=== PATIENT | female | born 1970 | race Caucasian/White ===

== ENCOUNTER 2023-09-01 13:27 | Emergency (ER) | payer MEDICAID, SELFPAY ==
[2023-09-01 13:28] VITALS: BP 120/82; PULSE 92; RESP 18; TEMP 36.2; O2SAT 97; BMI 20.5
[2023-09-01] MEDS: 0.9% Normal Saline (1000mL) 1,000 ML 1000 ML IV (14:21)
[2023-09-01 14:25] LABS: Absolute Lymphocyte Count 1.96 X10^3/uL (0.83-4.51); Absolute Neutrophil Count 4.5 X10^3/uL (2.0-7.7); Basophil% 1.4 % (0-1); Eosinophil# 0.25 X10^3/uL; Eosinophils% 3.4 % (0-5); Hematocrit 41.1 % (37-47); Hemoglobin 13.8 g/dL (12.0-15.0); Lymphocyte # 1.96 X10^3/ul (0.83-4.51); Mean Corp Hgb Conc 33.6 g/dL (32-36); Mean Corpuscular Hgb 32.2 pg (27.0-32.0); Mean Platelet Vol. 9.3 fl (6.2-12.0); Monocyte# 0.44 X10^3/uL; Monocyte% 6.1 % (0-10); NRBC Flagged by Analyzer 0 % (0-5); Neutrophil # 4.48 X10^3/uL (2.7-7.7); Neutrophil % 61.7 % (47-70); Platelet Count 301 K/mm3 (150-450); RBC Distribution Width CV 13.7 % (11.6-14.6); RBC Distribution Width SD 48.7 fl (35.1-43.9); Red Blood Count 4.28 M/mm3 (4.2-5.4); White Blood Count 7.3 K/mm3 (4.4-11.0)
[2023-09-01 14:44] LABS: International Normalized Ratio 0.9; Prothrombin Time (Protime)PT. 12.4 SECONDS (11.7-14.9)
--- NOTE | 2023-09-01 14:54 | ED.RN ---
Pt called out to have iv removed because it hurts too much. This RN informed pt that a ct scan with contrast was ordered and she'd need an iv. This RN asked if she would allow me to replace it in a different location. Pt declined. informed.
--- NOTE | 2023-09-01 14:56 | ED.RN ---
Registration entered room to get pt registered. Pt refused to answer questions and said she was leaving. Pt seen leaving facility. informed.
[2023-09-01 15:01] LABS: Anion Gap 4 (5-15); BUN 21 mg/dL (7-18); BUN/Creat Ratio 22.2 RATIO (10-20); Calcium,Total 9.1 mg/dL (8.5-10.1); Chloride 107 mmol/L (98-107); Creatinine, Serum 0.95 mg/dL (0.55-1.02); EST Glomerular Filtration Rate 66 mL/min (>60); Est Glom Filt Rate - Afr Amer 79 mL/min (>60); Estimated Creatinine Clearance 54.17 ml/min; Glucose 95 mg/dL (74-106); Lipase 65 U/L (13-75); Potassium 4.2 mmol/L (3.5-5.1); Sodium Level 139 mmol/L (136-145)
[2023-09-01 15:14] LABS: Troponin-I HS 3 pg/mL (3.0-54.0)
[2023-09-01 15:22] LABS: Lactic Acid 0.6 mmol/L (0.4-1.9)
--- NOTE | 2023-09-01 15:55 | EDS_ITS ---
HPI History of Present Illness Chief Complaint: Abd Pain Narrative Narrative: 52-year-old female presenting with chief complaint of spitting up blood which she states has been going on since February. She states he is not vomiting up blood but she is nauseous. She states she was diagnosed with lung cancer in February and upon following up with her primary she was told that the blood is likely from GERD/acid reflux and was put on a PPI which has not been helping. Patient states she has been coughing more and associates this with more blood in her sputum. Patient has had follow-up for the lung cancer and states that she recently had a PET scan and she had a bronchoscopy at [facility] but does not think they took any biopsies. Patient has not had pulmonology follow-up. She states she supposed to see Dr. Bingham but has been lost to follow-up. She also relates that she was recently diagnosed with metastatic brain cancer on MRI and was told again to see Dr. Scott but has not yet followed. She is not on any blood thinners. She denies chest pain. She is not short of breath. She has not had any fevers. [facility] Medical History Brain cancer Cancer GERD (gastroesophageal reflux disease) Lung cancer Home Medications No Known/Unobtainable [No Known Home Medications] 03/26/16 [History Last Taken Unknown] Allergy/AdvReac Type Severity Reaction Status Date / Time No Known Allergies Allergy Verified 09/01/23 13:32 Social History Smoking Status: Current every day smoker tobacco type: cigarettes ROS ROS ED Constitutional Constitutional ED: Denies chills, fever(s) or sweats Eyes Eyes: Denies blurry vision or change in vision ENT ENT ED: Denies ear pain or sore throat Cardiovascular Cardiovascular: Denies chest pain, palpitations or racing heartbeat Respiratory/Chest Respiratory/Chest: Reports cough and other Details: Hemoptysis ; Denies dyspnea or sputum Gastrointestinal Gastrointestinal: Denies abdominal pain, constipation, diarrhea, nausea or vomiting Genitourinary Genitourinary ED: Denies dysuria, hematuria or urinary frequency Musculoskeletal Musculoskeletal: Denies arthralgias, myalgias or neck pain Integumentary Denies abscess, Abrasions or rash Neurologic Neurologic: Denies headache(s), paresthesias or weakness Psychiatric Psychiatric: Denies anxiety, depression, suicidal ideation or suicidal thoughts Endocrine Endocrinology: Denies polydipsia or polyuria EXAM Physical Exam Const Vital Signs: 09/01/23 13:28 Temperature 97.2 F L Temperature Source Temporal Pulse Rate 92 Respiratory Rate 18 Blood Pressure 120/82 H Blood Pressure Mean 94 Pulse Ox 97 Oxygen Delivery Method Room Air Positive well nourished General Appearance ED: NAD Eyes PERRL and EOMs intact bilaterally Resp normal respiratory effort Cardio regular rate and regular rhythm Neuro oriented x3 and CN's II-XII intact bilaterally Sensorium / Orientation: alert Psych mental status grossly normal Skin no rashes or lesions noted MDM MDM MDM Narrative Medical decision making narrative: Patient presenting with hemoptysis which has been ongoing since February. After discussion with the patient it sounds like she has had a lot of follow-up in some of this appears to be appropriate. It does appear that she needs a biopsy to distinguish what kind of cancer she has. When I initially evaluated her I did not have my stethoscope so I told her we will put in orders with we will get a CTA of the chest to make sure she did not have a blood clot as this was high on the list with hemoptysis and lung cancer and she seemed amenable to this. I ordered the lab work and an IV was established. Upon going back to the room however the patient had told the nurse that the IV hurt and she had eloped. I was able to log into [employer], and I was able to find pertinent medical records available for review to compare to the patient's current lab/imaging/workup. And I do note that the patient did have a bronchoscopy at [facility] and it does not like she has adenocarcinoma of the lung. Her PET scan showed only activity in the chest and she had an MRI of the brain which showed metastasis to the brain. It says multiple brain metastasis numbering greater than 10 ranging in size from approximately 1 cm in the right frontal lobe to scattered punctate foci of the reynolds-white matter junctions in multiple locations. There is some mass effect focally related to vasogenic edema around the larger metastases but no shift several of the lesions are in close proximity to the surface of the brain but there is no clear imaging evidence for gross superficial leptomeningeal disease on this exam. This MRI was performed August 27, 2023. Since the patient eloped I tried to call back the number that she left us and is the wrong number. I looked again at the phone number left on [facility] [phone] and simply told the patient I had some results that she was not aware of and recommended she call me back although I did not receive a return call. CBC ultimately shows normal white blood cell count of 7.3. Hemoglobin 13.8. Platelets 301. PT/INR normal. Renal function and electrolytes unremarkable. Lactic acid 0.6. Lipase 65. High-sensitivity troponin is 3. I was not however able to obtain an EKG which was ordered. I called Dr. Bingham as she is supposed to follow-up with him and he states that his office has reached out to her several times that she has had several referrals to him but is unable to make appointments and keeps canceling. He states that also she showed up in office and was not able to wait for him to see him. He states that from what his knowledge is that whoever drives her is unable to wait for her and this is why she keeps leaving. Impression: 1. Metastatic adenocarcinoma 2. Brain metastases 3. Hemoptysis Lab Data Attestation: I reviewed the patient's lab results. Labs: Laboratory Results - last 24 hr 09/01/23 09/01/23 13:40 14:20 WBC 7.3 RBC 4.28 Hgb 13.8 Hct 41.1 MCV 96.0 MCH 32.2 H MCHC 33.6 RDW Std Deviation 48.7 H RDW Coeff of Mila 13.7 Plt Count 301 MPV 9.3 Immature Gran % (Auto) 0.400 Neut % (Auto) 61.7 Lymph % (Auto) 27.0 [place] % (Auto) 6.1 Eos % (Auto) 3.4 Baso % (Auto) 1.4 H Absolute Neuts (auto) 4.5 Absolute Lymphs (auto) 1.96 Nucleated RBC % 0 PT 12.4 INR 0.9 Sodium 139 Potassium 4.2 Chloride 107 Carbon Dioxide 28.0 Anion Gap 4 L BUN 21 H Creatinine 0.95 Estim Creat Clear Calc 54.17 Est GFR (MDRD) Af Amer 79 Est GFR (MDRD) Non-Af 66 BUN/Creatinine Ratio 22.2 H Glucose 95 Lactic Acid 0.6 Calcium 9.1 Troponin I High Sens 3 Lipase 65 Discharge Plan Triage Chief Complaint: Abd Pain ED Provider: Huang Lombardo Dx/Rx/DC Orders Clinical Impression: Lung cancer metastatic to brain, Hemoptysis, Metastatic adenocarcinoma Instructions: ED Hemoptysis Prescriptions: No Action No Known Home Medications Primary Care Provider: Ag Robertson Referrals: Ag Robertson MD [Primary Care Provider] - Disposition Disposition: Elopement Discharge Date/Time: 09/01/23 15:03
== END 2023-09-01 15:03 | disposition left against medical advice (07) ==
LOC: ED 15:00
PROVIDERS: Emergency Provider Student in an Organized Health Care Education/Training Program; PCP Family Medicine; Visit Provider Student in an Organized Health Care Education/Training Program
DX: R04.2 Hemoptysis (principal); C71.9 Malignant neoplasm of brain, unspecified; F17.210 Nicotine dependence, cigarettes, uncomplicated
CPT/HCPCS: 80048; 83605; 83690; 84484; 85025; 85610; 99283; J7030; A4216

== ENCOUNTER 2024-11-16 14:42 | Emergency (ER) | payer MEDICAID, SELFPAY ==
[2024-11-16 14:43] VITALS: BP 120/105; PULSE 81; RESP 18; TEMP 37.1; O2SAT 98; BMI 20.5
[2024-11-16 14:47] VITALS: BP 120/105; PULSE 81; RESP 18; TEMP 37.1; O2SAT 98
[2024-11-16 16:22] VITALS: BP 152/64; PULSE 84; RESP 15; TEMP 36.6; O2SAT 99
[2024-11-16] MEDS: Morphine 4 MG/ML Syringe IV (16:50)
[2024-11-16] MEDS: DiphenhydrAMINE 50 MG/ML Syringe IV (16:50)
--- NOTE | 2024-11-16 16:50 | EX.ED.DYSGE1 ---
HPI History of Present Illness Chief Complaint: Rash Narrative Narrative: Chief complaint and HPI: Rash. 53-year-old female with metastatic lung cancer to the brain on chemotherapy presents for evaluation of chronic rash. Patient states that she has had a chronic rash that waxes and wanes for the past year. She follows with oncology, Dr. Bingham. She states he thinks it is secondary to the chemotherapy. She has tried antibiotics, Aquaphor, Vaseline as treatments. Patient states that the rash is improved from 2 weeks ago. Associated symptom is pain and pruritus which is why she presents today. She states that she cannot live like this. She denies any significant change. At baseline the rash occasionally breaks open and bleeds. Last chemotherapy was approximately 1 month ago. She denies any fever, chills, chest pain, shortness of breath, nausea, vomiting. Review of systems: See HPI Medications: As listed on the chart Allergies: As listed on the chart PFSH: Per chart Vital signs: As listed on the chart. Reviewed. Physical exam: Gen: A&O x3, NAD Head: Normocephalic, atraumatic Eyes: No sclera icterus, conjunctiva clear, PERRL ENT: Moist mucous membranes without rash or lesion, tympanic membranes clear bilaterally Neck: Trachea midline, No JVD, full range of motion CV: RRR, no murmurs, no peripheral edema Resp: Lungs CTA BL, no w/r/c GI: Abd soft, non-distended, non-tender, no r/r/g Musc: Full ROM, no deformity Skin: Warm. Patient has a erythematous rash to the bilateral ears/lateral face, anterior neck, chest, and bilateral arms. The rash is blanchable. Dry skin with excoriations. Excoriations are at different stages of healing. No mucosal involvement. No crepitus. Negative Nikolsky sign. No blisters or bullae. No weeping or drainage. Neuro: Alert, oriented, grossly intact, sensation intact Psych: Cooperative, appropriate mood and affect [facility] Medical History Brain cancer Cancer GERD (gastroesophageal reflux disease) Lung cancer Home Medications ?Medication ?Instructions ?Recorded ?Last Taken ?Type prednisone 20 mg tablet 20 mg PO DAILY 9 days #22 tabs 11/16/24 Unknown Rx Allergy/AdvReac Type Severity Reaction Status Date / Time No Known Allergies Allergy Verified 11/16/24 14:48 Social History Smoking Status: Current every day smoker tobacco type: cigarettes EXAM Physical Exam Const Vital Signs: 11/16/24 14:43 11/16/24 14:47 11/16/24 16:22 Temperature 98.7 F 98.7 F Temperature Source Oral Oral Pulse Rate 81 81 84 Respiratory Rate 18 18 15 Blood Pressure 120/105 H 120/105 H 152/64 H Blood Pressure Mean 110 110 93 Pulse Ox 98 98 99 Oxygen Delivery Method Room Air Room Air Room Air 11/16/24 16:22 11/16/24 17:00 Temperature 98 F Temperature Source Oral Pulse Rate 84 79 Respiratory Rate 15 16 Blood Pressure 152/64 H 135/96 H Blood Pressure Mean 93 109 Pulse Ox 99 96 Oxygen Delivery Method Room Air Room Air MDM MDM MDM Narrative Medical decision making narrative: 53-year-old female with metastatic lung cancer to the brain on chemotherapy presents for evaluation of chronic rash. Patient states that she has had a chronic rash that waxes and wanes for the past year. She follows with oncology, Dr. Bingham. She states he thinks it is secondary to the chemotherapy. She has tried antibiotics, Aquaphor, Vaseline as treatments. Patient states that the rash is improved from 2 weeks ago. But that she can no longer live with the pruritus and the pain. Last chemotherapy was approximately 1 month ago. Denies any infectious symptoms. Morphine, Zofran, Benadryl ordered for symptoms. See physical exam findings. Oncology consulted. Differential diagnosis includes but is not limited to chronic skin rash from chemotherapy. Not consistent with cellulitis. I spoke with Dr. Bingham on the phone. States he has been trying to get the patient to see the hollow tile partition erector which he will arrange. Patient to follow-up in his office. Recommend 60 mg of prednisone x 5 days and then 40 mg of prednisone x 5 days. Patient was educated on the plan. She was given her first prednisone dose here. Follow-up with oncology. Return precautions explained. Tylenol and Benadryl as needed for pain and pruritus. Patient stable to discharge home. Impression: 1. Chronic skin rash 2. Likely side effect from chemotherapy Discharge Plan Triage Chief Complaint: Rash ED Provider: Bharat Flores Dx/Rx/DC Orders Clinical Impression: Chronic pruritic rash in adult Instructions: Chronic Health Condition [place] Dx, Chronic Health Conditions Care Prescriptions: New prednisone 20 mg tablet 20 mg PO DAILY 9 Days Qty: 22 0RF Rx Instructions: Take 60 mg x 4 days and then 40 mg x 5 days Primary Care Provider: Taryn Rowland NP Referrals: Ag Robertson MD [Non-Staff] - 3-5 Days Simone Bingham DO [Med Staff - Active Staff] - 3-5 Days Activity Restrictions/Additional Instructions: You received your first dose of prednisone here in the emergency department. Take your next dose tomorrow. Benadryl as needed for itching. Tylenol as needed for pain. Follow-up with your oncologist. Call tomorrow to see when he wants to see you in the office. Print Language: Polish Disposition Disposition: Home, Self Care
[2024-11-16] MEDS: Ondansetron 4 MG/2 ML Vial IV (16:51)
[2024-11-16 17:00] VITALS: BP 135/96; PULSE 79; RESP 16; O2SAT 96
[2024-11-16] MEDS: predniSONE 20 MG Tablet 60 MG PO (17:32)
[2024-11-16 17:36] VITALS: BP 135/69; PULSE 82; RESP 16; TEMP 36.6; O2SAT 99
== END 2024-11-16 17:38 | disposition home or self-care (01) ==
PROVIDERS: Emergency Provider Surgery; PCP Registered Nurse; Visit Provider Surgery
DX: L29.9 Pruritus, unspecified (principal); C79.31 Secondary malignant neoplasm of brain; C34.90 Malignant neoplasm of unspecified part of unspecified bronchus or lung; K21.9 Gastro-esophageal reflux disease without esophagitis; F17.210 Nicotine dependence, cigarettes, uncomplicated; Z79.899 Other long term (current) drug therapy
CPT/HCPCS: 96374; 96375; 99283; A4216; J2405